=== PATIENT | female | born 1975 | race Caucasian/White ===

== ENCOUNTER 2019-06-17 07:33 | Day surgery (SDC) | payer BC, OTHER ==
[2019-06-17] VITALS (15 sets, daily range): BP systolic 122–163; BP diastolic 66–95; PULSE 54–78; RESP 11–27
[~2019-06-17 07:33] MED LIST: ATEN50TA PO; ATOR10TA65 PO; FLUT1BLS INHALATION; LORA10TA3 PO
[2019-06-17] MEDS ORDERED: CEFAZOLIN 1 GM INJ ONE (10:00)
[2019-06-17] MEDS ORDERED: ALBUTEROL 0.083% (NEB) 2.5 MG/3 ML AMP HHN PRN ×2 (10:30)
[2019-06-17] MEDS ORDERED: ONDANSETRON 4 MG INJ IV PRN ×2 (10:30)
[2019-06-17] MEDS ORDERED: DIPHENHYDRAMINE 50 MG INJ IV PRN ×2 (10:30)
[2019-06-17] MEDS ORDERED: OXYCODONE/ACETAMINOPHEN (5/325) TAB PO PRN ×4 (10:30)
[2019-06-17] MEDS ORDERED: HYDROmorphONE 1 MG/5 ML IV SYRINGE IV PRN ×5 (10:30)
[2019-06-17] MEDS ORDERED: EPHEDrine 25 MG/5 ML SYG IV PRN ×2 (10:30)
[2019-06-17] MEDS ORDERED: MEPERIDINE 25 MG INJ IV PRN ×2 (10:30)
[2019-06-17] MEDS ORDERED: hydrALAzine 20 MG INJ IV PRN ×2 (10:30)
[2019-06-17] MEDS ORDERED: KETOROLAC 30 MG INJ IV PRN ×2 (10:30)
[2019-06-17] MEDS ORDERED: LABETALOL HCL 20MG INJ IV PRN ×2 (10:30)
[2019-06-17] MEDS ORDERED: FENTAnyl 50 MCG/ML VIAL IV PRN ×6 (10:30)
[2019-06-17] MEDS ORDERED: POLYMYXIN/BACITRACIN 1L IRRIG IRR ONE (11:07)
[2019-06-17] MEDS ORDERED: HYDROCODONE/APAP (5/325) TAB PO ONE (11:30)
[2019-06-17] MEDS: HYDROmorphONE 1 MG/5 ML IV SYRINGE IV PRN ×2 (11:52→11:55)
== END 2019-06-17 13:48 | disposition home or self-care (01) ==
LOC: SDS 07:33
PROVIDERS: ATTEND Surgery
DX: K43.6 Other and unspecified ventral hernia with obstruction, without gangrene (principal); I10 Essential (primary) hypertension; J45.909 Unspecified asthma, uncomplicated; E78.5 Hyperlipidemia, unspecified
CPT/HCPCS: 49653; J0690; J3010; Z7512; Z7610